=== PATIENT | male | born 1960 | race African-American/Black ===

== ENCOUNTER 2022-05-03 15:25 | Emergency (ER) | payer OTHER, SELFPAY ==
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
--- NOTE | ~2022-05-03 | XR_ITS ---
XR shoulder LT min 2V 05/03/2022 16:52 Indication: Left shoulder pain Procedure: 4 views left shoulder Comparison: No prior studies for comparison. Findings: There are is mild polyarticular osteoarthritis. Osteopenia. No fracture, subluxation or dis location. No significant soft tissue abnormality. Impression: 1: No acute fracture. Reviewed, dictated and finalized at location B. Impression: 1: No acute fracture.
[2022-05-03 15:27] VITALS: BP 180/89; PULSE 82; RESP 20; TEMP 36.9; O2SAT 100
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
[2022-05-03] MEDS: methocarbamoL 750 MG TABLET 1500 MG PO (16:11)
[2022-05-03] MEDS: ACETAMINOPHEN 500 MG TABLET 1000 MG PO (16:11)
[2022-05-03] MEDS: IBUPROFEN 400 MG TABLET 800 MG PO (16:11)
[2022-05-03 17:31] VITALS: BP 137/84; PULSE 97; RESP 16; O2SAT 100
== END 2022-05-03 17:32 | disposition home or self-care (01) ==
PROVIDERS: Emergency Provider Emergency Medicine
DX: S49.92XA Unspecified injury of left shoulder and upper arm, initial encounter (principal); V49.50XA Passenger injured in collision with unspecified motor vehicles in traffic accident, initial encounter
CPT/HCPCS: 71045; 73030; 99284; A9270